=== PATIENT | male | born 1965 | race African-American/Black ===

== ENCOUNTER 2024-02-04 03:11 | Emergency (ER) | payer OTHER ==
[~2024-02-04] VITALS: Ht 177.8 cm; Wt 124.0 kg
[2024-02-04 03:19] VITALS: BP 145/82; PULSE 87; RESP 14; TEMP 97.7; O2SAT 96
[2024-02-04] MEDS ORDERED: TETANUS, DIPHTHERIA, PERTUSSIS VAC/PF 0.5ML (>10YR OLD) IM ONE ×2 (05:30→09:00)
[2024-02-04] MEDS ORDERED: LIDOCAINE HCL/PF 1% 10 MG/ML 5ML VIAL INFIL ONE (05:30)
[2024-02-04] MEDS ORDERED: IBUPROFEN 600MG TABLET PO ONE (05:30)
[2024-02-04] MEDS ORDERED: BACITRACIN ZINC OINT UDPKT TOP ONE (05:30)
[2024-02-04] MEDS ORDERED: IBUP-2029 MT (08:06)
[2024-02-04] MEDS ORDERED: LIDOCAINE HCL/PF 1% 10 MG/ML 5ML VIAL INFIL NR (09:00)
[2024-02-04] MEDS ORDERED: BACITRACIN ZINC OINT UDPKT TOP NR (09:00)
[2024-02-04] MEDS ORDERED: IBUPROFEN 600MG TABLET PO NR (09:00)
== END 2024-02-04 09:33 | disposition home or self-care (01) ==
LOC: ER 03:11
DX: S92.101A Unspecified fracture of right talus, initial encounter for closed fracture (principal); S81.811A Laceration without foreign body, right lower leg, initial encounter; Z98.890 Other specified postprocedural states; X58.XXXA Exposure to other specified factors, initial encounter; Y93.89 Activity, other specified; Y92.89 Other specified places as the place of occurrence of the external cause; Y99.8 Other external cause status
CPT/HCPCS: 73590; 12004; 29515; 99283; J3490; Z7610 ×2

== ENCOUNTER 2024-02-12 10:42 | Emergency (ER) | payer OTHER ==
[~2024-02-12] VITALS: Ht 175.3 cm; Wt 116.0 kg
[~2024-02-12 10:42] MED LIST: IBUP-2029 MT
[2024-02-12 10:50] VITALS: O2SAT 95
[2024-02-12 12:49] VITALS: BP 136/75; PULSE 94; RESP 18; TEMP 98.2
== END 2024-02-12 12:51 | disposition home or self-care (01) ==
LOC: ER 10:42
DX: S81.811D Laceration without foreign body, right lower leg, subsequent encounter (principal); X58.XXXD Exposure to other specified factors, subsequent encounter; Z98.890 Other specified postprocedural states
CPT/HCPCS: 99281; Z7610 ×2

== ENCOUNTER 2024-02-16 09:07 | Emergency (ER) | payer OTHER ==
[~2024-02-16] VITALS: Ht 172.7 cm; Wt 127.0 kg
[2024-02-16 09:15] VITALS: O2SAT 97
[2024-02-16] MEDS ORDERED: MUPI1OIN4 TP (10:06)
[2024-02-16] MEDS: BACITRACIN ZINC OINT UDPKT TOP ONE (10:19)
[2024-02-16 10:31] VITALS: BP 149/74; PULSE 98; RESP 18; TEMP 98.5
== END 2024-02-16 10:32 | disposition home or self-care (01) ==
LOC: ER 09:07
DX: S92.001D Unspecified fracture of right calcaneus, subsequent encounter for fracture with routine healing (principal); X58.XXXD Exposure to other specified factors, subsequent encounter
CPT/HCPCS: 99283; Z7610 ×4; 99281

== ENCOUNTER 2024-12-19 08:40 | Inpatient (IN) | payer MEDICARE, OTHER ==
[~2024-12-19] VITALS: Ht 177.8 cm; Wt 119.3 kg
[~2024-12-19 08:40] MED LIST changes: +MUPI1OIN4 TP
[2024-12-19 08:51] VITALS: O2SAT 100
[2024-12-19 09:27] LABS: BASOPHILS % 1.2 % (0.0-2.0); DIFFERENTIAL COMMENT 0; EOSINOPHILS % 0.7 % (0.0-5.0); HEMATOCRIT. 39.4 % (42.0-52.0); HEMOGLOBIN. 12.8 g/dL (14.0-18.0); LYMPHOCYTES % 9.9 % (20.0-50.0); MEAN CORPUSCULAR HEMOGLOBIN 33.4 pg (28.0-32.0); MEAN CORPUSCULAR HGB CONC 32.4 g/dL (31.0-37.0); MEAN PLATELET VOLUME 10.2 fl (7.4-10.4); NEUTROPHILS % 79.2 % (40.0-76.0); PLATELET 155 x1000/uL (130-400); RED BLOOD CELL COUNT 3.83 mill/uL (4.7-6.1); RED CELL DISTRIBUTION WIDTH 16.4 % (11.6-14.6); WHITE BLOOD COUNT 6.4 x1000/uL (4.5-11.0)
[2024-12-19 09:30] LABS: POTASSIUM 3.9 mEq/L (3.5-5.1)
[2024-12-19 09:31] LABS: CALCIUM 8.4 mg/dL (8.7-10.4)
[2024-12-19 09:36] LABS: CREATININE 2.1 mg/dL (0.6-1.3)
[2024-12-19] MEDS: LABETALOL 5MG/ML 4ML INJ IV ONE (10:59)
[2024-12-19] MEDS ORDERED: NAPR-1486 PO (13:49)
[2024-12-19] MEDS ORDERED: TRAZ-251 PO (13:53)
[2024-12-19] MEDS ORDERED: MECL-299 MT (13:53)
[2024-12-19] MEDS ORDERED: DAPA10TA PO (13:53)
[2024-12-19] MEDS ORDERED: MAGNESIUM/ALUMINUM HYDROXIDE/SIMETHICONE 30ML UDC PO PRN (14:00)
[2024-12-19] MEDS ORDERED: IPRATROPIUM/ALBUTEROL 0.5-3(2.5)MG/3ML NEB HHN PRN (14:00)
[2024-12-19] MEDS ORDERED: ONDANSETRON HCL 4MG/2ML INJ IV PRN (14:00)
[2024-12-19] MEDS ORDERED: ACETAMINOPHEN 325MG TABLET PO PRN ×2 (14:00)
[2024-12-19] MEDS ORDERED: GUAIFENESIN 200MG/10ML SUGAR FREE UDC PO PRN (14:00)
[2024-12-19] MEDS ORDERED: DOCUSATE SODIUM 100MG CAPSULE PO PRN (14:00)
[2024-12-19] MEDS ORDERED: FERR325T6 MT (14:01)
[2024-12-19] MEDS ORDERED: LISI40TA13 PO (14:01)
[2024-12-19] MEDS ORDERED: FURO20TA4 PO (14:01)
[2024-12-19] MEDS ORDERED: APIX5TAB PO (14:01)
[2024-12-19] MEDS ORDERED: IBUP-2029 MT (14:01)
[2024-12-19] MEDS ORDERED: MECL-299 PO (14:01)
[2024-12-19] MEDS ORDERED: SIMV-46 PO (14:01)
[2024-12-19] MEDS ORDERED: CALC-26 MT (14:01)
[2024-12-19] MEDS ORDERED: FOLI-43 PO (14:01)
[2024-12-19] MEDS ORDERED: ALLO300T2 MT (14:01)
[2024-12-19 14:32] VITALS: BP 178/89; PULSE 84; RESP 18; TEMP 36.8
[2024-12-19] MEDS ORDERED: HYDRALAZINE 20MG/ML VIAL IV PRN (14:45)
[2024-12-19] MEDS: FUROSEMIDE 20MG/2ML VIAL IVP SCH (14:48)
[2024-12-19] MEDS: AMLODIPINE 5MG TABLET PO SCH (14:48)
[2024-12-19] MEDS: ENOXAPARIN 120MG/0.8ML SYR SUBCUT NR (14:49)
[2024-12-19 16:00] VITALS: BP 178/89; PULSE 76; RESP 16; TEMP 36.6; O2SAT 96
[2024-12-19] MEDS: CARVEDILOL 3.125 MG TABLET PO SCH (16:36)
[2024-12-19] MEDS: HYDRALAZINE HCL 25MG TABLET PO SCH (16:36)
[2024-12-19] MEDS: ISOSORBIDE MONONITRATE 30MG TABLET SR 24HR PO SCH (16:37)
[2024-12-19 17:01] LABS: IRON 48 ug/dL (65-175)
[2024-12-19 17:04] LABS: TOTAL IRON BINDING CAPACITY 613 ug/dl (250-425)
[2024-12-19 18:47] LABS: INR 0.9
[2024-12-19 18:56] LABS: TROPONIN I HIGH SENSITIVITY 15 ng/L (3.0-53)
[2024-12-19 18:58] LABS: CREATINE KINASE 182 IU/L (46-171)
[2024-12-19 19:01] LABS: VITAMIN B12 SERUM 861 pg/mL (211-911)
[2024-12-19 19:14] LABS: FOLIC ACID (FOLATE) SERUM 19.43 ng/mL (>5.38)
[2024-12-19 20:00] VITALS: BP 135/74; PULSE 86; RESP 19; TEMP 36.9; O2SAT 94
[2024-12-19] MEDS: TRAZODONE HCL 50MG TABLET PO SCH (20:56)
[2024-12-19] MEDS: NAPROXEN 250MG TABLET PO SCH (22:14)
[2024-12-19] MEDS: CLONIDINE 0.1MG TABLET PO PRN (23:48)
[2024-12-20] VITALS: BP 173/103; PULSE 84; RESP 18; TEMP 36.2; O2SAT 97
[2024-12-20 04:00] VITALS: BP 158/96; PULSE 89; RESP 17; TEMP 36.7; O2SAT 96
[2024-12-20 08:16] VITALS: BP 163/94; PULSE 82; RESP 18; TEMP 36.3; O2SAT 98
[2024-12-20] MEDS: ENOXAPARIN 120MG/0.8ML SYR SUBCUT SCH (09:00)
[2024-12-20] MEDS: PANTOPRAZOLE SODIUM 40 MG/VIAL IV SCH (09:04)
[2024-12-20] MEDS: FERROUS SULFATE 325MG TABLET PO SCH (09:08)
[2024-12-20 12:00] VITALS: BP 138/85; PULSE 77; RESP 20; TEMP 36.6; O2SAT 98
[2024-12-20 13:16] VITALS: PULSE 77
[2024-12-20] MEDS: ISOSORBIDE MONONITRATE 30MG TABLET SR 24HR PO NR (13:16)
[2024-12-20] MEDS ORDERED: FAMOTIDINE 20MG TABLET PO SCH (21:00)
[2024-12-20] MEDS ORDERED: CARVEDILOL 6.25 MG TABLET PO SCH (21:00)
[2024-12-21] MEDS ORDERED: AMLODIPINE 5MG TABLET PO SCH (09:00)
[2024-12-21] MEDS ORDERED: ISOSORBIDE MONONITRATE 60MG TABLET SR 24HR PO SCH (09:00)
[2024-12-21] MEDS ORDERED: AMLODIPINE 10MG TABLET PO SCH (09:00)
== END 2024-12-20 16:41 | disposition left against medical advice (07) | DRG 305 ==
LOC: ER 08:40 → 5WST 12:26 → EDBEDREQ 12:28 → EDBEDREQTM 12:28
PROVIDERS: ADMIT Internal Medicine; ATTEND Internal Medicine
DX: I16.1 Hypertensive emergency (principal); N17.9 Acute kidney failure, unspecified; I50.22 Chronic systolic (congestive) heart failure; I13.0 Hypertensive heart and chronic kidney disease with heart failure and stage 1 through stage 4 chronic kidney disease, or unspecified chronic kidney disease; I48.0 Paroxysmal atrial fibrillation; E11.22 Type 2 diabetes mellitus with diabetic chronic kidney disease; N18.9 Chronic kidney disease, unspecified; D53.9 Nutritional anemia, unspecified; Z53.29 Procedure and treatment not carried out because of patient's decision for other reasons; I44.4 Left anterior fascicular block; E83.51 Hypocalcemia; Z96.619 Presence of unspecified artificial shoulder joint; Z96.649 Presence of unspecified artificial hip joint; Z91.148 Patient's other noncompliance with medication regimen for other reason; Z79.01 Long term (current) use of anticoagulants; Z79.899 Other long term (current) drug therapy
CPT/HCPCS: 36415; 76770; 80048; 82306; 82330; 82550; 82607; 82746; 83540; 83550; 84484; 85025; 93005; 93306; 93970; 97165; 99291; J0360; J1650; J1940; J2470; J3490